=== PATIENT | male | born 1955 | race Caucasian/White ===

== ENCOUNTER 2016-08-09 12:07 | Emergency (ER) | payer OTHER ==
[~2016-08-09] VITALS: Ht 167.6 cm; Wt 65.0 kg
[2016-08-09 12:17] VITALS: Ht 167.6 cm; Wt 65.0 kg
--- NOTE | 2016-08-09 13:56 | RADRPT ---
PROCEDURE: CT head without Contrast CLINICAL INDICATION: EtOH with forehead laceration TECHNIQUE: Transaxial images were made through the head on a multi-slice scanner without intraveno us contrast. Coronal and sagittal images were subsequently reformatted. One or more of the following dose reduction techniques were used: - Automated exposure control. - Adjustment of the mA and/or kV according to patient size. - Use of iterative reconstruction technique. Radiation dose: CTDIvol = 45.01 mGy; DLP = 720.23 mGy-cm. COMPARISON: None FINDINGS: The calvarium appears intact. There is a fracture of uncertain chronicity involving the right nasal bone. There is a small left frontal scalp hematoma. There are mild inflammatory changes involving the anterior right maxillary sinus. The mastoid air cells are well-aerated. The ventricles are mildly dilated but proportionate to the prominent fissures and sulci compatible w ith mild diffuse cortical atrophy. There is no midline shift. No intracranial bleed, mass, or extra-axial fluid collection is identified. There is good guillermo-white matter differentiation. IMPRESSION: 1. Fracture of uncertain chronicity involving the right nasal bone. The calvarium appears intact. 2. Small left frontal scalp hematoma. 3. Mild diffuse cortical atrophy. 4. No evidence of any intracranial bleed or of an acute intracranial abnormality. Physician Tran Date Time Electronically viewed and signed by Physician Tran on 08/09/2016 13:56 /
--- NOTE | 2016-08-09 14:13 | RADRPT ---
PROCEDURE: CT Maxillofacial without Contrast CLINICAL INDICATION: EtOH with facial trauma TECHNIQUE: Transaxial images were obtained through the maxillofacial region on a multi-slice scann er without the intravenous contrast administration. Sagittal and coronal re-formations were subseque ntly reconstructed. One or more of the following dose reduction techniques were used: - Automated exposure control. - Adjustment of the mA and/or kV according to patient size. - Use of iterative reconstruction technique. Radiation dose: CTDIvol = 45.01 mGy; DLP = 720.23 mGy-cm. COMPARISON: No prior studies are available for comparison. FINDINGS: Osseous structures: There is a fracture involving the right nasal bone with mild medial angulation a t the fracture site. There is a nondepressed fracture of the tip of the left nasal bone. The chron icity of these fractures is uncertain. There is a small defect within the right lamina papyracea echeverria spicious for a fracture of uncertain chronicity. The remaining osseous elements appear intact. The re is shani apical lucency seen about a left inferior bicuspid and about a right inferior molar with dental caries noted. Paranasal sinuses: Mild inflammatory changes are seen within the maxillary sinuses bilaterally. The remaining paranasal sinuses are well-aerated. Mastoid air cells: Appear well pneumatized. Temporomandibular joints: Appear unremarkable. Orbits: The ocular globes, optic nerves, and intraorbital contents appear unremarkable. Soft tissues: There is soft tissue swelling in the left frontal scalp suspicious for a hematoma. IMPRESSION: 1. Medially angulated fracture involving the right nasal bone with a nondisplaced fracture of the t ip of the left nasal bone. These are of uncertain chronicity. 2. Small fracture involving the right lamina papyracea, of uncertain chronicity. 3. Small left frontal scalp hematoma. 4. Mild inflammatory changes involving the maxillary sinuses bilaterally. 5. Shani apical lucency seen about a left inferior bicuspid and about the right inferior molar with dental caries. Physician Tran Date Time Electronically viewed and signed by Physician Tran on 08/09/2016 14:13 /
--- NOTE | 2016-08-09 15:00 | ERD ---
ER Documentation Chief Complaint Date/Time DATE: 08/09/16 TIME: 14:53 Chief Complaint BIB [facility] FOR ETOH. PT WITH BUMP TO FOREHEAD. HPI This 61-year-old male was brought in by ambulance for being intoxicated and having small for head laceration. Patient is speaking at this point and says that he hit his head on a wall. He admits to drinking alcohol today but will not say what he was drinking. He denies any other pain besides on his head. Denies any other injuries. ROS All systems reviewed and are negative except as per history of present illness the patient is unreliable because he has some signs of intoxication. Medications Home Meds Unable to Obtain Active Prescriptions or Reported Meds Allergies Allergies: Coded Allergies: No Known Allergy (Unverified , 08/09/16) PMhx/Soc Medical and Surgical Hx: pt denies Medical Hx, pt denies Surgical Hx Hx Alcohol Use: Yes (today ) Hx Substance Use: No Hx Tobacco Use: Yes (1/2pack /day) Smoking Status: Current every day smoker Physical Exam Vitals Vital Signs Date Time Temp Pulse Resp B/P Pulse Ox O2 Delivery O2 Flow Rate FiO2 08/09/16 12:17 98.6 110 19 139/70 99 Physical Exam Const: [] No distress Head: 1.5 cm horizontal laceration to the left midforehead with no active bleeding. There is no surrounding soft tissue swelling Eyes: Normal Conjunctiva and EOMI, PERRLA ENT: Normal External Ears, Nose and Mouth. No tender to palpation of face or nasal bones, no septal hematoma Neck: Full range of motion..~ No meningismus. Resp: Clear to auscultation bilaterally Cardio: Regular rate and rhythm, no murmurs Abd: Soft, non tender, non distended. Normal bowel sounds Skin: No petechiae or rashes Back: No midline or flank tenderness Ext: No cyanosis, or edema Neur: Awake and alert and oriented 3, slurred speech, cooperate with neuro exam and has cranial nerves II through XII intact and no cerebellar finger to nose deficits, gait is normal around the emergency room. Psych: Normal Mood and Affect Procedures/MDM Intoxicated patient with head injury. No signs of acute fractures on CT of head or maxillofacial CT. Patient attempted to light a cigarette twice in the emergency room and was stopped by staff. He was placed in a bed and handrails were up. Before laceration could be repaired the patient somehow eloped from the emergency room his staff could not find him that I obtain the Dermabond. Patient was still mildly intoxicated at that point although he did have his coordination intact. Eloped from the ER. CT head interpretation: Mild forehead soft tissue swelling, I see no hemorrhage no mass effect no midline shift, no skull fracture CT maxillofacial interpretation: I see no acute fracture, no orbital fracture, nasal fracture does not appear new, maxillary and zygomatic bones appear intact. Departure Diagnosis: Primary Impression: Acute head injury Additional Impression: Alcohol intoxication Condition: Stable LILIAM BOJORQUEZ DO Aug 09, 2016 15:00
== END 2016-08-09 15:30 | disposition left against medical advice (07) ==
LOC: E/R 12:07
DX: S01.81XA Laceration without foreign body of other part of head, initial encounter (principal); F10.120 Alcohol abuse with intoxication, uncomplicated; F17.210 Nicotine dependence, cigarettes, uncomplicated; R40.2142 Coma scale, eyes open, spontaneous, at arrival to emergency department; R40.2242 Coma scale, best verbal response, confused conversation, at arrival to emergency department; R40.2362 Coma scale, best motor response, obeys commands, at arrival to emergency department; W22.01XA Walked into wall, initial encounter; Y92.9 Unspecified place or not applicable
CPT/HCPCS: 70450; 70486